=== PATIENT | male | born 1985 | race Two or more races ===

== ENCOUNTER 2021-08-11 14:35 | Inpatient (IN) | payer MEDICARE, OTHER ==
[~2021-08-11] VITALS: Ht 160 cm; Wt 95.4 kg
--- NOTE | 2021-08-11 14:41 | NUR ---
PT IS IN ROOM #1B. DR ALFONSO EVALUATED THE PT.
[2021-08-11] MEDS ORDERED: IV NORMAL SALINE 1000 ML BAG IV ONE (15:00)
[2021-08-11 15:08] LABS: HEMATOCRIT 41.6 % (36.7-47.1); MEAN CORPUSCULAR HEMOGLOBIN 26.2 uug (23.8-33.4); PLATELET COUNT (AUTO) 265 K/uL (152-348)
[2021-08-11 15:16] LABS: CARBON DIOXIDE 33 mmol/L (21-32); CHLORIDE 99 mmol/L (98-107); CREATININE 0.6 mg/dL (0.6-1.3); GLUCOSE 172 mg/dL (74-106); POTASSIUM 4.1 mmol/L (3.5-5.1); UREA NITROGEN, BLOOD 14 mg/dL (7-18)
[2021-08-11 15:21] LABS: ETHANOL < 3 MG/DL (0-0)
[2021-08-11 15:22] LABS: ALANINE AMINOTRANSFERASE 59 U/L (16-63); ALKALINE PHOSPHATASE 87 U/L (50-136); ASPARTATE AMINOTRANSFERASE 22 U/L (15-37); BILIRUBIN,DIRECT 0.1 mg/dL (0.0-0.2); BILIRUBIN,TOTAL 0.2 mg/dL (0.2-1.0); TOTAL PROTEIN, SERUM 6.6 g/dL (6.4-8.2)
[2021-08-11] MEDS ORDERED: GLUC1KIT IM (15:31)
[2021-08-11] MEDS ORDERED: LEVE500T9 PO (15:31)
[2021-08-11] MEDS ORDERED: INSU100V28 SQ (15:31)
[2021-08-11] MEDS ORDERED: NITR0.4T48 SL (15:31)
[2021-08-11] MEDS ORDERED: ATOR40TA PO (15:31)
[2021-08-11 17:22] LABS: *AMPHETAMINE, URINE NEGATIVE (NEGATIVE); *CANNABINOID, URINE NEGATIVE (NEGATIVE); *COCCAINE, URINE NEGATIVE (NEGATIVE); *OPIATE, URINE NEGATIVE (NEGATIVE); *PHENCYCLIDINE SCREEN,URINE NEGATIVE (NEGATIVE)
--- NOTE | 2021-08-11 18:13 | NUR ---
REPORT WAS GIVEN TO ROUSTABOUT CREW LEADER. PT WAS TRANSFERED TO ROOM #308.
--- NOTE | 2021-08-11 18:40 | NUR ---
ADMITTED FROM ER A 36 YO MALE ALERT AND RESPONDING APPROPRIATELY WITH SIMPLE QUESTIONS, ORIENTED TO ROOM, VS TAKEN. DINNER SERVED WITHOUT ANY SIGNS OF ASPIRATION. REPORT GIVEN TO UNIT RECEPTIONIST
[2021-08-11 19:03] VITALS: BP 103/61
--- NOTE | 2021-08-11 19:10 | NUR ---
Received pt in no acute distress. Pt alert and orientedx3. Admission process and care plan initiated. Belonging list done. alf assessment done. Safety and comfort provided. Will continue to monitor.
[2021-08-11 20:09] VITALS: BP 99/67
[2021-08-11] MEDS ORDERED: ACETAMINOPHEN 325 MG TABLET PO PRN (20:15)
[2021-08-11] MEDS ORDERED: DEXTROSE 50% 50 ML DISP.SYRIN IV PRN (20:15)
[2021-08-11] MEDS ORDERED: REMEDY ESSENTIAL ZINC PASTE 113 GM TP PRN (20:15)
[2021-08-11] MEDS ORDERED: MAGNESIUM HYDROXIDE 30 ML LIQUID UDC PO PRN (20:15)
[2021-08-11 20:39] LABS: *BILIRUBIN,URIN NEGATIVE (NEGATIVE); *BLOOD, URINE NEGATIVE (NEGATIVE); *CLARITY,URINE CLEAR (CLEAR); *KETONES,URINE NEGATIVE (NEGATIVE); *UROBILINOGEN,URINE 0.2 E.U./dl (NORMAL); LEUKOCYTE ESTERASE ,URINE TRACE (NEGATIVE); NITRITE, URINE NEGATIVE (NEGATIVE); UGLUCOSE NEGATIVE (NEGATIVE)
[2021-08-11 20:40] LABS: *COLOR,URINE STRAW (YELLOW)
[2021-08-11 20:48] LABS: BACTERIA,URINE FEW /HPF (NONE SEEN); RBC,URINE NONE SEEN /HPF (0-3); SQUAMOUS EPITHELIAL CELL,UR FEW /HPF (NONE SEEN)
[2021-08-11] MEDS: DOCUSATE SODIUM 100 MG CAPSULE PO SCH (21:34)
[2021-08-11] MEDS: SULFAMETH/TRIMETH 800/160 MG TABLET PO SCH (21:34)
[2021-08-11] MEDS: BLOOD SUGAR DIAGNOSTIC 1 EACH STRIP VI SCH (21:39)
[2021-08-11] MEDS: INSULIN REGULAR, HUMAN 300 UNIT/3 ML VIAL SQ PRN (21:43)
[2021-08-11] MEDS ORDERED: ALBUTEROL SULFATE 2.5 MG/ 0.5 ML NEBU NEB PRN (21:45)
[2021-08-11] MEDS ORDERED: LORAZEPAM 2 MG/1 ML VIAL IV PRN ×2 (22:00)
[2021-08-11] MEDS: ZOLPIDEM 5 MG TABLET PO PRN (22:14)
[2021-08-11] MEDS: NICOTINE 21 MG/24HR PATCH TD SCH (22:14)
[2021-08-11] MEDS: levETIRAcetam 500 MG TABLET PO SCH (22:14)
[2021-08-11] MEDS: HYDROCODONE/APAP 5-325MG TABLET PO PRN (22:26)
--- NOTE | 2021-08-11 23:50 | NUR ---
at 2214h Ambien 5mg prn given to pt as per pt request for sleep. At 2226H [place] 5-325 mg prn 1 tablet given for stomach pain. Pt tolerated it well. After an hour pt Ambien and [place] effective because pt is sleeping soundly with no acute distress. Will continue to monitor.
[2021-08-12 00:03] VITALS: BP 100/63
[2021-08-12 04:06] VITALS: BP 108/67
[2021-08-12] MEDS: PANTOPRAZOLE SODIUM 40 MG TABLET.DR PO SCH (06:32)
[2021-08-12] MEDS: BLOOD SUGAR DIAGNOSTIC 1 EACH STRIP VI SCH ×4 (06:33→20:34)
--- NOTE | 2021-08-12 06:50 | NUR ---
Pt slept comfortably.Prescribed medication given and pt tolerated it well. Pt had tendency to not answer staff . Pt on sinus rhythm. Seizure precaution noted. Vital signs within normal limit. Safety and comfort provided. Will endorse to incoming nurse.
[2021-08-12 06:53] LABS: MEAN CORPUSCULAR HEMOGLOBIN 26.6 uug (23.8-33.4); MEAN CORPUSCULAR VOLUME 81.4 fL (73.0-96.2); PLATELET COUNT (AUTO) 234 K/uL (152-348)
[2021-08-12 07:26] LABS: CARBON DIOXIDE 29 mmol/L (21-32); CHLORIDE 101 mmol/L (98-107); CREATININE 0.6 mg/dL (0.6-1.3); GLUCOSE 176 mg/dL (74-106); MAGNESIUM 1.9 mg/dL (1.8-2.4); PHOSPHOROUS 3.9 mg/dL (2.5-4.9); UREA NITROGEN, BLOOD 12 mg/dL (7-18)
[2021-08-12 07:38] LABS: CHOLESTEROL 166 mg/dL (<200); HDL CHOLESTEROL 38 mg/dL (40-60); TRIGLYCERIDES 144 MG/DL (30-150)
--- NOTE | 2021-08-12 08:00 | NUR ---
Received patient laying in bed. Awake, alert oriented x 3. Denies pain or SOB. Tele SR on room air. Pt. able to walk to the restroom but with 1 per assist. Safety initiated. Call light within reach. Will continue to monitor.
[2021-08-12] MEDS: THIAMINE HCL 100 MG TABLET PO SCH (08:46)
[2021-08-12] MEDS: levETIRAcetam 500 MG TABLET PO SCH ×2 (08:46→16:38)
[2021-08-12] MEDS: SULFAMETH/TRIMETH 800/160 MG TABLET PO SCH ×2 (08:46→20:34)
[2021-08-12] MEDS: HYDROCODONE/APAP 5-325MG TABLET PO PRN ×2 (08:47→23:00)
[2021-08-12] MEDS: FOLIC ACID 1 MG TABLET PO SCH (08:47)
[2021-08-12] MEDS ORDERED: SULFAMETH/TRIMETH 800/160 MG TABLET PO SCH (09:00)
[2021-08-12] MEDS: NICOTINE 21 MG/24HR PATCH TD SCH (10:45)
--- NOTE | 2021-08-12 11:00 | NUR ---
ORTHOSTATIC VITAL SIGNS Laying 107/70 HR 73 Sitting 104/73 HR 77 Standing 100/60 HR 81 Will continue to monitor.
[2021-08-12 11:54] VITALS: BP 100/60
[2021-08-12 15:41] VITALS: BP_SYST 100; BP_SYST 104; BP_SYST 107; BP_DIAS 60; BP_DIAS 70; BP_DIAS 73
[2021-08-12] MEDS ORDERED: ESCI10TA PO (16:11)
[2021-08-12] MEDS ORDERED: LURA40TA PO (16:12)
[2021-08-12 16:19] VITALS: BP 93/59
[2021-08-12] MEDS: ATORVASTATIN 40 MG TABLET PO SCH (17:16)
--- NOTE | 2021-08-12 18:11 | NUR ---
Patient remains afebrile. No seizure event noted. Rails remained padded. Bed alarm on. Denies pain and SOB. Remains A/O x4. TELE SR at 81. Comfort and safety measures maintained t/o shift. All meds given as ordered. All needs met.
[2021-08-12] MEDS: INSULIN REGULAR, HUMAN 300 UNIT/3 ML VIAL SQ PRN ×2 (18:31→20:36)
--- NOTE | 2021-08-12 19:00 | NUR ---
Received report. Patient is awake, lying in bed, A/Ox3. Denies pain at this time. No signs of acute distress noted. Bed at lowest position, brakes on, bed alarm on, siderails x2. Call light within reach. Will continue to monitor. Addendum: 08/13/21 at 0000 by Alice Jackson RN Padded siderails for seizure precaution.
--- NOTE | 2021-08-12 19:00 | NUR ---
Patient was found sitting on the floor. Patient stated, "I was trying to get comfortable, had a seizure and fell." Patient claimed he hit his head on the floor and that his head and chest hurts. VS taken T=98.9, HR=74, RR=16, BP 112/80, O2 sat= 97%. No events noted on the monitor. No signs of swelling nor hematoma noted on patient's head. Patient was placed back on the bed, bed alarm on and call light within reach. Charge nurse Rick, nursing solar installation crew supervisor Yessica [place]kins [place] [place] Dr Navarro made aware. Per Dr. Navarro, no new orders, just observe. Will continue to monitor closely. Addendum: 08/12/21 at 2144 by Alice Jackson RN Wrong time.
--- NOTE | 2021-08-12 19:30 | NUR ---
Patient was found sitting on the floor. Patient stated, "I was trying to get comfortable, had a seizure and fell." Patient claimed he hit his head on the floor and that his head and chest hurts. VS taken T=98.9, HR=74, RR=16, BP 112/80, O2 sat= 97%. No events noted on the monitor. No signs of swelling nor hematoma noted on patient's head. Patient was placed back on the bed, bed alarm on and call light within reach. Charge nurse Rick, nursing maintenance service supervisor Yessica Dawkins ([facility] [place] and Dr Navarro made aware. Per Dr. Navarro, no new orders, just observe. Will continue to monitor closely.
[2021-08-12 20:00] VITALS: BP 103/71
[2021-08-12] MEDS ORDERED: TRAZ-182 PO ×2 (20:00→20:01)
[2021-08-12] MEDS ORDERED: PRAZ1CAP5 PO (20:02)
[2021-08-12] MEDS ORDERED: METF-442 PO (20:03)
[2021-08-12] MEDS ORDERED: ALBU18HF2 INH (20:04)
[2021-08-12] MEDS: DOCUSATE SODIUM 100 MG CAPSULE PO SCH (20:34)
--- NOTE | 2021-08-12 22:00 | NUR ---
Patient leaning to siderails, dangling legs, wanting to get up. Reoriented patient, explained risk and benefits x3. Verbalized understanding. Placed patient back to bed. Will continue to monitor closely.
--- NOTE | 2021-08-12 23:00 | NUR ---
Patient complained of pain, PS 8/10. [place] given as ordered. Will continue to monitor closely.
[2021-08-12] MEDS: ONDANSETRON 4 MG/2 ML VIAL IV PRN (23:50)
[2021-08-13] VITALS: BP 104/73
--- NOTE | 2021-08-13 00:30 | NUR ---
Patient stated, "I felt anxious." Ativan 0.5mg IV given as ordered.
[2021-08-13] MEDS: ZOLPIDEM 5 MG TABLET PO PRN (00:31)
[2021-08-13 04:00] VITALS: BP 110/71
--- NOTE | 2021-08-13 04:00 | NUR ---
Resting comfortably. No significant change of condition noted. Will continue to monitor closely.
--- NOTE | 2021-08-13 06:00 | NUR ---
No seizure noted. Seizure precaution. VSS. NAD.
[2021-08-13] MEDS: PANTOPRAZOLE SODIUM 40 MG TABLET.DR PO SCH (06:06)
[2021-08-13] MEDS: BLOOD SUGAR DIAGNOSTIC 1 EACH STRIP VI SCH ×4 (06:37→21:09)
[2021-08-13 07:11] LABS: HEMATOCRIT 43.6 % (36.7-47.1); MEAN CORPUSCULAR HEMOGLOBIN 26.8 uug (23.8-33.4); MEAN CORPUSCULAR VOLUME 80.7 fL (73.0-96.2); PLATELET COUNT (AUTO) 259 K/uL (152-348)
[2021-08-13 07:35] LABS: CREATININE 0.8 mg/dL (0.6-1.3); MAGNESIUM 2.1 mg/dL (1.8-2.4); PHOSPHOROUS 4.5 mg/dL (2.5-4.9); POTASSIUM 4.1 mmol/L (3.5-5.1)
--- NOTE | 2021-08-13 08:00 | NUR ---
received sitting by the window comfortable. asked to go back to bed and assisted by 2 licensed nurses. pt is currently eating comfortably. denies n/v/sob. bed at lowest, padded siderails in place, bed alarm on, call light in place. assisted with needs. cont to monitor
[2021-08-13] MEDS: levETIRAcetam 500 MG TABLET PO SCH ×2 (08:13→17:01)
[2021-08-13] MEDS: THIAMINE HCL 100 MG TABLET PO SCH (08:13)
[2021-08-13] MEDS: FOLIC ACID 1 MG TABLET PO SCH (08:13)
[2021-08-13] MEDS: NICOTINE 21 MG/24HR PATCH TD SCH (08:13)
[2021-08-13] MEDS: INSULIN REGULAR, HUMAN 300 UNIT/3 ML VIAL SQ PRN ×4 (08:13→21:11)
[2021-08-13] MEDS: SULFAMETH/TRIMETH 800/160 MG TABLET PO SCH ×2 (08:13→20:44)
[2021-08-13] MEDS: HYDROCODONE/APAP 5-325MG TABLET PO PRN (08:20)
--- NOTE | 2021-08-13 10:23 | NUR ---
log roper zari goldman rounding at this time updated on condition no new orders received.
[2021-08-13 11:51] VITALS: BP 98/63
--- NOTE | 2021-08-13 12:25 | NUR ---
A call from [facility] to Mr. Jj and at this time He was informed that due to transport delayed procedure approved by passenger locomotive engineer Dr. Lopes to be done any time tomorrow. Mr. Toscano stated "I'll be calling you earlier tomorrow to let you know at what time we'll be ready for procedure on 08/14/20." primary nurse nurse and blood donor recruiter supervisor updated on care plan.
[2021-08-13] MEDS ORDERED: ALBUTEROL SULFATE 8 GM HFA.AER.AD INH PRN (12:45)
[2021-08-13] MEDS: ESCITALOPRAM OXALATE 10 MG TABLET PO SCH (13:17)
--- NOTE | 2021-08-13 14:22 | NUR ---
A call from [facility] and at this time primary nurse Aleida informed that pt. is schedule to have Cardiac CTA at [facility] at 1000. construction project coordinator in charge of arranging ACLS transportation. Awaiting for information.
--- NOTE | 2021-08-13 15:40 | NUR ---
At this time case management Derrick called and informed charge R.N that due to Insurance reasons (no coverage for ALS transportation) CM unable to arranged ALS transportation to [facility] tomorrow for scheduled cardiac CTA. Story Reader Dr. Lopes informed and not happy with outcome but agreed to have BLS transportation despite been contra-indicated pt. needs procedure to be done.
--- NOTE | 2021-08-13 15:52 | NUR ---
Patient c/o generalized pain states norco is ineffective requested Morphine instead. Informed BICYCLE MESSENGER Ke with new order noted.
[2021-08-13] MEDS ORDERED: MORPHINE SULFATE 2 MG/1 ML DISP.SYRIN IV ONE (16:15)
[2021-08-13 16:26] VITALS: BP 112/68
--- NOTE | 2021-08-13 16:53 | NUR ---
no significant change from morning assessment. sr on telemonitor. no episodes of sob/chest pain/seizure. cont seizure and fall precautions at all times.
[2021-08-13] MEDS: ATORVASTATIN 40 MG TABLET PO SCH (17:01)
[2021-08-13] MEDS ORDERED: LURASIDONE HCL 120 MG PO SCH (18:00)
[2021-08-13 20:09] VITALS: BP 96/57
[2021-08-13] MEDS: DOCUSATE SODIUM 100 MG CAPSULE PO SCH (20:44)
[2021-08-13] MEDS: TRAZODONE 50 MG TABLET PO SCH (20:44)
[2021-08-13] MEDS: PRAZOSIN HCL 1 MG CAPSULE PO SCH (20:46)
--- NOTE | 2021-08-13 21:00 | NUR ---
Colby (latoya) called, report given.
--- NOTE | 2021-08-13 22:39 | NUR ---
Called YANN and chana with [facility] re: transportation to [facility] for CT angio. supplier specialist time 0830am tomorrow 08/14/21.
[2021-08-14 01:06] LABS: *GC NAA Negative (Negative)
[2021-08-14 04:09] VITALS: BP 100/63
[2021-08-14] MEDS: PANTOPRAZOLE SODIUM 40 MG TABLET.DR PO SCH (06:28)
[2021-08-14] MEDS: BLOOD SUGAR DIAGNOSTIC 1 EACH STRIP VI SCH ×4 (06:43→20:23)
[2021-08-14] MEDS: THIAMINE HCL 100 MG TABLET PO SCH (09:00)
[2021-08-14] MEDS: SULFAMETH/TRIMETH 800/160 MG TABLET PO SCH ×2 (09:00→20:26)
[2021-08-14] MEDS: levETIRAcetam 500 MG TABLET PO SCH ×2 (09:00→16:57)
[2021-08-14] MEDS: FOLIC ACID 1 MG TABLET PO SCH (09:00)
[2021-08-14] MEDS: NICOTINE 21 MG/24HR PATCH TD SCH (09:00)
[2021-08-14] MEDS: ESCITALOPRAM OXALATE 10 MG TABLET PO SCH (09:00)
[2021-08-14] MEDS: INSULIN REGULAR, HUMAN 300 UNIT/3 ML VIAL SQ PRN ×4 (09:32→20:28)
--- NOTE | 2021-08-14 11:30 | NUR ---
patient returned from [facility] from chest ct angiogram with note that patients contrast bled through the right arm and with order to apply warm compress times 10 hours, patient arrived with new iv site left ac 18g, report was given that patient received 50mg metoprolol. patient upon arrival with v/s wnl, warm compress applied to right arm, no c/o pain at this time.
[2021-08-14 12:00] VITALS: BP 104/75
[2021-08-14] MEDS: ONDANSETRON 4 MG/2 ML VIAL IV PRN ×2 (13:44→23:34)
[2021-08-14] MEDS: HYDROCODONE/APAP 5-325MG TABLET PO PRN ×3 (13:44→22:55)
[2021-08-14 16:00] VITALS: BP 94/63
[2021-08-14] MEDS: ATORVASTATIN 40 MG TABLET PO SCH (17:04)
[2021-08-14] MEDS: DOCUSATE SODIUM 100 MG CAPSULE PO SCH (20:26)
[2021-08-14] MEDS: TRAZODONE 50 MG TABLET PO SCH (20:26)
[2021-08-14] MEDS: PRAZOSIN HCL 1 MG CAPSULE PO SCH (20:27)
[2021-08-14 20:38] VITALS: BP 121/79
[2021-08-14 22:06] LABS: *TRIC.VAG. NAA Negative (Negative)
[2021-08-15 00:16] VITALS: BP 92/51
[2021-08-15] MEDS: ZOLPIDEM 5 MG TABLET PO PRN (02:28)
[2021-08-15 04:00] VITALS: BP 109/78
[2021-08-15] MEDS: PANTOPRAZOLE SODIUM 40 MG TABLET.DR PO SCH (06:06)
--- NOTE | 2021-08-15 06:19 | NUR ---
Patient slept intermittently c/o gen body pain .Medicated with [place] x1 during the shift with good result. NSR on Tele HR 74.On Ra.No s/s of distress noted. Voided well using urinal.IV patent and intact on left hand 20 g and Left AC 18 g.No seizure noted. Continue seizure precaution. Call light with in reach.All needs anticipated and met accordingly. Will endorse to oncoming shift.
[2021-08-15] MEDS: BLOOD SUGAR DIAGNOSTIC 1 EACH STRIP VI SCH ×2 (06:40→12:22)
[2021-08-15] MEDS: ESCITALOPRAM OXALATE 10 MG TABLET PO SCH (08:21)
[2021-08-15] MEDS: levETIRAcetam 500 MG TABLET PO SCH (08:21)
[2021-08-15] MEDS: THIAMINE HCL 100 MG TABLET PO SCH (08:22)
[2021-08-15] MEDS: SULFAMETH/TRIMETH 800/160 MG TABLET PO SCH (08:22)
[2021-08-15] MEDS: NICOTINE 21 MG/24HR PATCH TD SCH (08:22)
[2021-08-15] MEDS: FOLIC ACID 1 MG TABLET PO SCH (08:22)
[2021-08-15] MEDS: HYDROCODONE/APAP 5-325MG TABLET PO PRN (08:22)
[2021-08-15 08:25] VITALS: BP 90/58
[2021-08-15] MEDS ORDERED: NICO-780 TD (10:47)
[2021-08-15] MEDS ORDERED: THIA100T13 PO (10:47)
[2021-08-15] MEDS ORDERED: Sulfameth/Trimeth 800/160 Mg PO (10:47)
[2021-08-15] MEDS ORDERED: FOLI1TAB94 PO (10:47)
[2021-08-15] MEDS ORDERED: SITA50TA PO (10:51)
[2021-08-15] MEDS ORDERED: INSU100V7 SQ (10:55)
[2021-08-15 12:00] VITALS: BP 100/63
[2021-08-15] MEDS: INSULIN REGULAR, HUMAN 300 UNIT/3 ML VIAL SQ PRN (12:23)
--- NOTE | 2021-08-15 13:05 | NUR ---
Patient IV removed with catheters intact. discharge information given, taxi voucher given and taken to discharge area where he was met by [employer]. Patient placed in taxi with walker as per discharge orders. Home health company information given to patient.
== END 2021-08-15 13:00 | disposition home health service (06) | DRG 896 ==
LOC: ER 14:43 → MEDSURG3 17:57 → TELE3 18:55 → MEDSURG3 08-15 10:29
PROVIDERS: ADMIT Nurse Practitioner Family; ATTEND Nurse Practitioner Acute Care
DX: F10.139 Alcohol abuse with withdrawal, unspecified (principal); I46.9 Cardiac arrest, cause unspecified; N39.0 Urinary tract infection, site not specified; E44.1 Mild protein-calorie malnutrition; G40.89 Other seizures; G90.8 Other disorders of autonomic nervous system; R55 Syncope and collapse; E11.65 Type 2 diabetes mellitus with hyperglycemia; E66.9 Obesity, unspecified; E78.5 Hyperlipidemia, unspecified; E83.51 Hypocalcemia; E88.09 Other disorders of plasma-protein metabolism, not elsewhere classified; Z20.822 Contact with and (suspected) exposure to COVID-19; D72.828 Other elevated white blood cell count; J45.909 Unspecified asthma, uncomplicated; Z79.4 Long term (current) use of insulin; Z71.6 Tobacco abuse counseling; Z68.37 Body mass index [BMI] 37.0-37.9, adult; Z71.3 Dietary counseling and surveillance; F17.210 Nicotine dependence, cigarettes, uncomplicated; Y90.0 Blood alcohol level of less than 20 mg/100 ml; F19.10 Other psychoactive substance abuse, uncomplicated; Z79.84 Long term (current) use of oral hypoglycemic drugs; F14.10 Cocaine abuse, uncomplicated; R07.9 Chest pain, unspecified
CPT/HCPCS: 36415; 70450; 71045; 71120; 83735; 84100; 84443; 84484; 85025; 87086; 87491; 93005; 93307; 93880; 97161; A4663; G0378; G0480; J1815; J2060; J2270; J2405

== ENCOUNTER 2021-12-14 20:57 | Inpatient (IN) | payer MEDICARE, OTHER ==
[~2021-12-14] VITALS: Ht 162.6 cm; Wt 102.6 kg
[~2021-12-14 20:57] MED LIST: ALBU18HF2 INH; ATOR40TA PO; ESCI10TA PO; FOLI1TAB94 PO; INSU100V28 SQ; INSU100V7 SQ; LEVE500T9 PO; LURA40TA PO; NICO-780 TD; PRAZ1CAP5 PO; Sulfameth/Trimeth 800/160 Mg PO; THIA100T13 PO; TRAZ-182 PO
--- NOTE | 2021-12-14 20:58 | NUR ---
DR: SANTINO at b/s examined and spoked with patient .
--- NOTE | 2021-12-14 21:11 | NUR ---
XRAY AT B/S for [place] chest xray .
--- NOTE | 2021-12-14 21:14 | NUR ---
lab collected from the left ac no # 20 given to toro .
[2021-12-14 21:30] LABS: CARBON DIOXIDE 28 mmol/L (21-32); CHLORIDE 99 mmol/L (98-107); CREATININE 0.7 mg/dL (0.6-1.3); GLUCOSE 108 mg/dL (74-106); POTASSIUM 3.7 mmol/L (3.5-5.1); UREA NITROGEN, BLOOD 13 mg/dL (7-18)
--- NOTE | 2021-12-14 21:30 | NUR ---
o2 saturation 91 to 93 % ON ROOM AIR , as per patient he has history of asthma ,placed 02 nasal cannula at 3 l/min now oxygen 96 %.
[2021-12-14 21:34] LABS: HEMATOCRIT 42.6 % (36.7-47.1); MEAN CORPUSCULAR HEMOGLOBIN 25.1 uug (23.8-33.4); MEAN CORPUSCULAR VOLUME 76.7 fL (73.0-96.2); PLATELET COUNT (AUTO) 233 K/uL (152-348)
[2021-12-14 21:46] LABS: ALANINE AMINOTRANSFERASE 57 U/L (16-63); ALKALINE PHOSPHATASE 95 U/L (50-136); ASPARTATE AMINOTRANSFERASE 22 U/L (15-37); BILIRUBIN,DIRECT 0.1 mg/dL (0.0-0.2); BILIRUBIN,TOTAL 0.2 mg/dL (0.2-1.0); TOTAL PROTEIN, SERUM 7.2 g/dL (6.4-8.2)
--- NOTE | 2021-12-14 21:46 | NUR ---
covid 19 swab done and send to lab .no s/s of respiratory distress breathing even and unlabored .
[2021-12-14] MEDS ORDERED: ASPI81TA31 PO (22:10)
[2021-12-14] MEDS ORDERED: TRAZ-182 PO (22:10)
[2021-12-14] MEDS ORDERED: IOHEXOL 350 100 ML INFUS..BTL ONE (22:16)
[2021-12-14] MEDS ORDERED: SWABABLE VALVE TRANSFER SET EA MC ONE (22:17)
[2021-12-14] MEDS ORDERED: IV NORMAL SALINE 250 ML IV ONE (22:17)
--- NOTE | 2021-12-14 22:25 | NUR ---
DR: KARLY at b/s spoked with patient requesting some thing to eat as per patient he need something to settle his stomach ,given crackers and saltines ,milk and water .
--- NOTE | 2021-12-14 23:19 | NUR ---
IV popped in the duration of the exam. Limited amount of contrast was infused. Suzy Wen
[2021-12-14] MEDS ORDERED: ENOXAPARIN SODIUM 100 MG/ML DISP.SYRIN SQ ONE ×2 (23:45→23:49)
[2021-12-14] MEDS ORDERED: ENOXAPARIN SODIUM 30 MG/0.3 ML DISP.SYRIN ONE (23:49)
--- NOTE | 2021-12-15 00:22 | NUR ---
Dr. Webb on panel call with Deb Swanson NP.
[2021-12-15] MEDS ORDERED: REMEDY ESSENTIAL ZINC PASTE 113 GM TP PRN (00:30)
[2021-12-15] MEDS ORDERED: TRAZODONE 50 MG TABLET PO SCH (00:30)
[2021-12-15] MEDS ORDERED: ZOLPIDEM 5 MG TABLET PO PRN (00:30)
[2021-12-15] MEDS ORDERED: ACETAMINOPHEN 325 MG TABLET PO PRN (00:30)
[2021-12-15] MEDS ORDERED: MAGNESIUM HYDROXIDE 30 ML LIQUID UDC PO PRN (00:30)
[2021-12-15] MEDS ORDERED: ONDANSETRON 4 MG/2 ML VIAL IV PRN (00:30)
[2021-12-15] MEDS ORDERED: MORPHINE SULFATE 4 MG/1 ML DISP.SYRIN IV ONE (00:30)
[2021-12-15] MEDS ORDERED: ALBUTEROL SULFATE 2.5 MG/3 ML NEBU NEB PRN (00:45)
[2021-12-15] MEDS ORDERED: MORPHINE SULFATE 4 MG/1 ML DISP.SYRIN ONE (00:56)
--- NOTE | 2021-12-15 01:05 | NUR ---
called security : KARLY at b/s explaing to patient that he cannot eat food from outside patient ordered food called security patient was upset and refusing doctors advised .
--- NOTE | 2021-12-15 01:11 | NUR ---
DR: KARLY AT B/S AND DISCUSSED WITH PATIENT THAT HE IS DIABETIC AND HE CANNOT EAT FOOD AND CANNOT ORDER HIS FOOD FROM OUTSIDE .
--- NOTE | 2021-12-15 01:32 | NUR ---
patient moved to telemetry room 309 via [facility] . patient went with all belongings and copy of the chart . v/s jabari syed went with patient .
--- NOTE | 2021-12-15 01:33 | NUR ---
Admitted this 36 y/o male from ER via gurney, awake alert and oriented x 3, in no acute distress. Sinus rhythm on tele with HR 94bmp. IV access to left AC intact and patent. Routine admission care done, plan of care initiated. Health teachings provided such as compliance with meds and prescribed diet related to DM. Patient insist to eat the food he ordered outside despite explaining risks and benefits. Needs assessed and attended to. Bed in locked and low position with call light within easy reach.
[2021-12-15 02:47] VITALS: BP 91/49
[2021-12-15 05:39] VITALS: BP 92/52
[2021-12-15] MEDS: ESCITALOPRAM OXALATE 10 MG TABLET PO SCH (08:35)
[2021-12-15] MEDS: THIAMINE HCL 100 MG TABLET PO SCH (08:35)
[2021-12-15] MEDS: ASPIRIN 81 MG TAB.CHEW PO SCH (08:35)
[2021-12-15] MEDS: FOLIC ACID 1 MG TABLET PO SCH (08:35)
[2021-12-15] MEDS ORDERED: ENOXAPARIN SODIUM 100 MG/ML DISP.SYRIN SQ SCH (09:00)
[2021-12-15] MEDS: ENOXAPARIN SODIUM 100 MG/ML DISP.SYRIN SQ SCH ×2 (09:43→20:44)
[2021-12-15 11:42] VITALS: BP 94/51
[2021-12-15 17:07] VITALS: BP 101/61
[2021-12-15] MEDS: ATORVASTATIN 40 MG TABLET PO SCH (17:09)
[2021-12-15] MEDS ORDERED: LURASIDONE HCL 120 MG PO SCH (18:00)
[2021-12-15 20:00] VITALS: BP 104/70
[2021-12-15] MEDS: PRAZOSIN HCL 1 MG CAPSULE PO SCH (20:48)
[2021-12-16] VITALS: BP 118/62
[2021-12-16 06:00] VITALS: BP 110/60
[2021-12-16 06:53] LABS: HEMATOCRIT 42.4 % (36.7-47.1); MEAN CORPUSCULAR HEMOGLOBIN 26.6 uug (23.8-33.4); MEAN CORPUSCULAR VOLUME 76.6 fL (73.0-96.2); PLATELET COUNT (AUTO) 239 K/uL (152-348)
[2021-12-16 07:14] LABS: CARBON DIOXIDE 28 mmol/L (21-32); CHLORIDE 98 mmol/L (98-107); CREATININE 0.7 mg/dL (0.6-1.3); MAGNESIUM 1.8 mg/dL (1.8-2.4); PHOSPHOROUS 3.2 mg/dL (2.5-4.9); POTASSIUM 4.4 mmol/L (3.5-5.1); UREA NITROGEN, BLOOD 11 mg/dL (7-18)
[2021-12-16 07:20] LABS: GLUCOSE 390 mg/dL (74-106)
[2021-12-16] MEDS: ENOXAPARIN SODIUM 100 MG/ML DISP.SYRIN SQ SCH ×2 (08:08→20:16)
[2021-12-16] MEDS: THIAMINE HCL 100 MG TABLET PO SCH (08:08)
[2021-12-16] MEDS: ASPIRIN 81 MG TAB.CHEW PO SCH (08:08)
[2021-12-16] MEDS: FOLIC ACID 1 MG TABLET PO SCH (08:08)
[2021-12-16] MEDS: ESCITALOPRAM OXALATE 10 MG TABLET PO SCH (08:08)
[2021-12-16 11:33] VITALS: BP 100/71
[2021-12-16] MEDS ORDERED: DEXTROSE 50% 50 ML DISP.SYRIN IV PRN (12:45)
--- NOTE | 2021-12-16 14:19 | NUR ---
Social work consult was requested for a patient on [facility] for substance abuse resources. Patient is 36-year-old male admitted to the hospital for pulmonary embolism. Patient is alert and oriented X3. Patient could not state the date. Patient presents with congruent mood and full range affect. Patient presents with poor judgement and insight. Patient states is primary furniture salesperson is his mother, Yessica ([phone]) who lives at [address], [address], [place] [address], and they have a good relationship. Patient states that he lives with his mother, Yessica and stepfather at [address], [address], [place] [address]. 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 Patient has a walker at home, is independent with his ADLs, and is not currently driving. Patient states that he has a history of alcohol and cocaine abuse. Patient states he has been sober for 5 months and has been going to AA meetings a couple times a week. The toxicology screening is not updated. SW offered patient substance abuse resources and patient refused. SW placed the resources in the patients chart. Patient states he has a history of schizoaffective disorder. Patient states he has a therapist that he sees once a week. Patient states he has a psychiatrist and is taking medication. Patient denies suicidal or homicidal ideation. The discharge plan is to go back to home to [address], [address], [place] [address].
[2021-12-16] MEDS: BLOOD SUGAR DIAGNOSTIC 1 EACH STRIP VI SCH ×2 (15:59→20:17)
[2021-12-16 16:01] VITALS: BP 117/78
[2021-12-16] MEDS: INSULIN REGULAR, HUMAN 300 UNIT/3 ML VIAL SQ PRN ×2 (16:29→20:14)
[2021-12-16] MEDS: ATORVASTATIN 40 MG TABLET PO SCH (17:00)
[2021-12-16 20:00] VITALS: BP 96/64
[2021-12-16] MEDS: INSULIN GLARGINE,HUM 300 UNITS/3 ML CARTRIDGE SQ SCH (20:16)
[2021-12-16] MEDS: PRAZOSIN HCL 1 MG CAPSULE PO SCH (20:18)
[2021-12-17] VITALS: BP 90/41
[2021-12-17 05:00] VITALS: BP 101/69
[2021-12-17 06:34] LABS: HEMATOCRIT 44.8 % (36.7-47.1); MEAN CORPUSCULAR HEMOGLOBIN 24.9 uug (23.8-33.4); MEAN CORPUSCULAR VOLUME 76.5 fL (73.0-96.2); PLATELET COUNT (AUTO) 230 K/uL (152-348)
[2021-12-17] MEDS: BLOOD SUGAR DIAGNOSTIC 1 EACH STRIP VI SCH ×4 (06:39→20:01)
[2021-12-17 06:45] LABS: CARBON DIOXIDE 33 mmol/L (21-32); CHLORIDE 100 mmol/L (98-107); CREATININE 0.6 mg/dL (0.6-1.3); GLUCOSE 189 mg/dL (74-106); MAGNESIUM 1.9 mg/dL (1.8-2.4); PHOSPHOROUS 3.7 mg/dL (2.5-4.9); POTASSIUM 3.9 mmol/L (3.5-5.1); UREA NITROGEN, BLOOD 10 mg/dL (7-18)
--- NOTE | 2021-12-17 07:04 | NUR ---
Pt rested well in between care; no acute distress; continue to monitor
[2021-12-17] MEDS: FOLIC ACID 1 MG TABLET PO SCH (08:09)
[2021-12-17] MEDS: THIAMINE HCL 100 MG TABLET PO SCH (08:09)
[2021-12-17] MEDS: ASPIRIN 81 MG TAB.CHEW PO SCH (08:09)
[2021-12-17] MEDS: ESCITALOPRAM OXALATE 10 MG TABLET PO SCH (08:09)
[2021-12-17] MEDS: INSULIN REGULAR, HUMAN 300 UNIT/3 ML VIAL SQ PRN ×4 (08:10→20:02)
[2021-12-17] MEDS: ENOXAPARIN SODIUM 100 MG/ML DISP.SYRIN SQ SCH ×2 (08:10→20:01)
[2021-12-17 12:00] VITALS: BP 110/76
[2021-12-17 15:57] VITALS: BP 108/71
[2021-12-17] MEDS: ATORVASTATIN 40 MG TABLET PO SCH (17:19)
[2021-12-17 20:00] VITALS: BP 102/61
[2021-12-17] MEDS: INSULIN GLARGINE,HUM 300 UNITS/3 ML CARTRIDGE SQ SCH (20:02)
[2021-12-17] MEDS: PRAZOSIN HCL 1 MG CAPSULE PO SCH (20:05)
[2021-12-18] VITALS: BP 165/80
[2021-12-18 04:30] VITALS: BP 96/72
[2021-12-18] MEDS: BLOOD SUGAR DIAGNOSTIC 1 EACH STRIP VI SCH (06:09)
--- NOTE | 2021-12-18 07:30 | NUR ---
RESTING IN BED AWAKE ALERT AND ORIENTED X3, NO CP OR SOB SR ON MONITOR
[2021-12-18] MEDS: INSULIN REGULAR, HUMAN 300 UNIT/3 ML VIAL SQ PRN (08:14)
[2021-12-18] MEDS ORDERED: APIXABAN 5 MG TABLET PO SCH (09:00)
--- NOTE | 2021-12-18 09:00 | NUR ---
RESTING COMFORTABLY NO SS OF PAIN OR DISTRESS. SEEN BY HOSPITALIST AND DIGITAL ASSOCIATE AND CLEARED FOR DISCHARGE
[2021-12-18] MEDS: ESCITALOPRAM OXALATE 10 MG TABLET PO SCH (09:14)
[2021-12-18] MEDS: ASPIRIN 81 MG TAB.CHEW PO SCH (09:15)
[2021-12-18] MEDS: THIAMINE HCL 100 MG TABLET PO SCH (09:15)
[2021-12-18] MEDS: FOLIC ACID 1 MG TABLET PO SCH (09:15)
--- NOTE | 2021-12-18 11:15 | NUR ---
DISCHARGED HOME STABLE VIA TAXI. MEDICATION AND FOLLOW-UP INSTRUCTION GIVEN.
[2021-12-25] MEDS ORDERED: APIXABAN 5 MG TABLET PO SCH (09:00)
== END 2021-12-18 11:15 | disposition home or self-care (01) | DRG 176 ==
LOC: ER 21:03 → TELE3 12-15 00:23
PROVIDERS: ADMIT Nurse Practitioner Acute Care; ATTEND Nurse Practitioner Acute Care
DX: I26.94 Multiple subsegmental thrombotic pulmonary emboli without acute cor pulmonale (principal); D68.59 Other primary thrombophilia; E66.2 Morbid (severe) obesity with alveolar hypoventilation; I26.99 Other pulmonary embolism without acute cor pulmonale; F17.210 Nicotine dependence, cigarettes, uncomplicated; Z79.4 Long term (current) use of insulin; Z68.38 Body mass index [BMI] 38.0-38.9, adult; E78.5 Hyperlipidemia, unspecified; R59.0 Localized enlarged lymph nodes; E11.65 Type 2 diabetes mellitus with hyperglycemia; F32.A Depression, unspecified; Z90.49 Acquired absence of other specified parts of digestive tract; Z88.0 Allergy status to penicillin; Z91.048 Other nonmedicinal substance allergy status; I10 Essential (primary) hypertension; F19.10 Other psychoactive substance abuse, uncomplicated; Z79.899 Other long term (current) drug therapy; J44.9 Chronic obstructive pulmonary disease, unspecified; Z79.82 Long term (current) use of aspirin; Z86.73 Personal history of transient ischemic attack (TIA), and cerebral infarction without residual deficits; Z71.3 Dietary counseling and surveillance
CPT/HCPCS: 36415; 71045; 71275; 83735; 84100; 84484; 85025; 85730; 93005; 93307; A4663; G0378; J1650; J1815; J2270; Q9967